=== PATIENT | male | born 1995 | race African-American/Black ===

== ENCOUNTER 2016-11-02 10:25 | Emergency (ER) | payer OTHER ==
[~2016-11-02] VITALS: Ht 170.2 cm; Wt 74.8 kg
[2016-11-02 10:30] VITALS: BP 144/91
--- NOTE | 2016-11-02 10:36 | ED GI/GU/ABDOMINAL COMPLAINT ---
History of Present Illness General Chief Complaint: Male Genitourinary Problems Stated Complaint: DISCHARGE FROM PENIS Source: patient Exam Limitations: no limitations Vital Signs & Intake/Output Vital Signs & Intake/Output Vital Signs Date Time Temp Pulse Resp B/P Pulse O2 O2 Flow FiO2 Ox Delivery Rate 11/02 1030 99.0 120 20 144/91 97 Room Air Allergies Coded Allergies: No Known Allergies (11/02/16) Reconcile Medications No Known Home Medications Triage Note: PT TO ED C/O ABD PAIN X 5 DAYS. C/O VOMITING AND DIARRHEA. ALSO STATES CLEAR DISCHARGE FROM HIS PENIS THE PAST 2 DAYS. STATES RECENT UNPROTECTED SEX. DENIES S/S. Triage Nurses Notes Reviewed? yes Timing: recent history Severity Numbers: 5 Location: urethral Activities at Onset: none Prior Abdominal Problems: none HPI: Patient is a 21-year-old male with an unremarkable past medical history who presents to emergency room with a five-day history of penile discharge and intermittent episodes of tactile fevers nausea 2 episodes of vomiting 2 days ago and a resolved 2 days ago complaint of abdominal discomfort. Patient also has loose watery stool production Patient denies any testicular pain penile skin lesions Patient is having unprotected sex with a female partner who has not discussed with him of any symptoms that she is having. Patient is able tolerate by mouth in the last 2 days Patient denies any dysuria hematuria or back pain (SNEHA MALONEY) Past History Travel History Traveled to [place] past 21 day No Medical History Any Pertinent Medical History? none Neurological: NONE EENT: NONE Cardiovascular: NONE Respiratory: NONE Gastrointestinal: NONE Hepatic: NONE Renal: NONE Musculoskeletal: NONE Psychiatric: NONE Endocrine: NONE Blood Disorders: NONE Cancer(s): NONE Tetanus Vaccine: Surgical History Surgical History: non-contributory, N Psychosocial History What is your primary language Thai Tobacco Use: Current Daily Use Daily Tobacco Use Amount/Type: => 5 Cigarettes daily ETOH Use: denies use Illicit Drug Use: denies illicit drug use Family History Hx Contributory? No (SNEHA MALONEY) Review of Systems Review of Systems Constitutional: Reports: no symptoms. EENTM: Reports: no symptoms. Respiratory: Reports: no symptoms. Cardiovascular: Reports: no symptoms. GI: Reports: see HPI. Genitourinary: Reports: see HPI, discharge. Musculoskeletal: Reports: no symptoms. Skin: Reports: no symptoms. Neurological/Psychological: Reports: no symptoms. Hematologic/Endocrine: Reports: no symptoms. Immunologic/Allergic: Reports: no symptoms. All Other Systems: Reviewed and Negative (SNEHA MALONEY) Physical Exam Physical Exam General Appearance: well developed/nourished, no apparent distress, alert Gastrointestinal: normal bowel sounds, soft, non-tender Male Genitals: normal genitalia Comments: Well-developed well-nourished person in no acute distress HEENT: Normal EENT exam, Neck: Supple, no lymphadenopathy, normal range of motion without pain or tenderness Back: Nontender, no CVA tenderness. Cardiovascular: Regular rate and rhythms no murmurs rubs or gallops, normal JVP Respiratory: Chest nontender. No respiratory distress.breath sounds clear to auscultation bilaterally Abdomen: Soft, nontender nondistended, no appreciable organomegaly. Normal bowel sounds. No ascites Extremity: No edema, no calf tenderness to palpation, normal and equal pulses. Neuro: Alert oriented x3, motor sensory normal, Skin: No appreciable rash on exposed skin, skin is warm and dry. Psych: Mood and affect is normal, memory and judgment is normal. Core Measures ACS in differential dx? No Severe Sepsis Present: No Septic Shock Present: No (SNEHA MALONEY) Progress Differential Diagnosis: appendicitis, biliary colic, bowel obstruction, cholecystitis, diverticulitis, epididymitis, esophageal varices, gastritis, hepatitis, hernia, hemorrhoids, ischemic bowel, inflamm bowel dis, Sravanthi-Geoff tear, orchitis, pancreatitis, prostatitis, peptic ulcer, PUD/GERD, perforated viscous, pyelonephritis, SBO, STD, testicular torsion, ureterolithiasis, urinary retention, urethritis, UTI/pyelo Plan of Care: Orders Procedure Date/time Status Add-on Test (ER Only) 11/02 1115 Active Add-on Test (ER Only) 11/02 1040 Active CULTURE,URINE 11/02 1038 Active CHLAMYDIA-GC DNA PROBE 11/02 1036 Active URINALYSIS 11/02 1036 Complete Laboratory Tests 11/02/16 1038: Urinalysis LIGHT H, Urine Color YEL, Urine Clarity HAZY H, Urine pH 6.0, Ur Specific [place] >= 1.030, Urine Protein 100 H, Urine Ketones NEG, Urine Nitrite NEG, Urine Bilirubin NEG@ICTO, Urine Urobilinogen 0.2, Ur Leukocyte Esterase NEG, Ur Microscopic SEDIMENT EXAMINED, Urine RBC 10-15 H, Urine WBC 5- 10 H, Ur Epithelial Cells RARE, Urine Mucus MANY H, Urine Hemoglobin SMALL H, Urine Glucose NEG Microbiology 11/02 1038 URINE ROUT: Urine Culture - RECD 11/02 1038 URINE ROUT: GC DNA Probe - RECD 11/02 1038 URINE ROUT: Chlamydia DNA Probe (ELGIN) - RECD Patient currently has unremarkable physical exam findings cremaster reflex was intact. No signs of skin lesions or herpes No penile discharge was appreciated patient has nontender abdomen and is able tolerate by mouth No testicular pain swelling Patient will be treated prophylactically for concerns of guttering Chlamydia was strongly advised to practice safe sex and let partner know of symptoms and if positive to be treated for similar symptoms On discharge patient looks well no apparent distress nontender abdomen no vomiting no nausea patient was afebrile. No CVA tenderness urinalysis was unremarkable for urine infection culture currently in pending (SNEHA MALONEY) Initial ED EKG: none (SNEHA MALONEY) Departure Departure Disposition: HOME OR SELF CARE Condition: Stable Clinical Impression Primary Impression: STD (male) Secondary Impressions: Abdominal pain Referrals: PATIENT HAS NO PRIMARY CARE DR (PCP/Family) Additional Instructions: As discussed you have been treated prophylactically with antibiotics for your symptoms in the emergency room. Please call the emergency room in one to 2 days to find out results of your cultures. Please do not participate in sexual activities until results are known and if positive please abstain from sex for approximately 10 days. Tomorrow please follow up and establish a primary care doctor with the referral numbers provided to the emergency room. Please let your partner know of your symptoms and if positive cultures are noted please inform her partner and have them be treated. If symptoms worsen return to emergency room. Please participate in safe sex techniques. Departure Forms: Customer Survey General Discharge Information Prescriptions: Current Visit Scripts No Known Home Medications (SNEHA MALONEY) PA/FOREIGN LAW CONSULTANT Co-Sign Statement Statement: ED Attending supervision documentation- [] I saw and evaluated the patient. I have also reviewed all the pertinent lab results and diagnostic results. I agree with the findings and the plan of care as documented in the PA's/FOREIGN LAW CONSULTANT's documentation. x I have reviewed the ED Record and agree with the PA's/FOREIGN LAW CONSULTANT's documentation. [] Additions or exceptions (if any) to the PAs/FOREIGN LAW CONSULTANT's note and plan are summarized below: [] (FAUSTINA CAMPBELL,RAJENDRA)
== END 2016-11-02 11:40 ==
LOC: ERH 10:25
DX: A64 Unspecified sexually transmitted disease (principal)
CPT/HCPCS: 81001; 81025; 87086; 87491; 87591; 96372

== ENCOUNTER 2017-01-05 02:58 | Emergency (ER) | payer OTHER ==
[~2017-01-05] VITALS: Ht 170.2 cm; Wt 74.8 kg
[2017-01-05 03:07] VITALS: BP 152/85
--- NOTE | 2017-01-05 03:09 | ED GI/GU/ABDOMINAL COMPLAINT ---
History of Present Illness General Chief Complaint: Abdominal Pain/Flank Pain Stated Complaint: ABD PAIN +N Source: patient Exam Limitations: no limitations Vital Signs & Intake/Output Vital Signs & Intake/Output Vital Signs Date Time Temp Pulse Resp B/P Pulse O2 O2 Flow FiO2 Ox Delivery Rate 01/05 0307 97.5 118 18 152/85 97 Room Air Allergies Coded Allergies: No Known Allergies (11/02/16) Reconcile Medications Omeprazole Magnesium (Prilosec Otc) 20 MG TABLET.DR 1 TAB PO DAILY STOMACH UPSET/BURNING Ondansetron (Zofran Odt) 4 MG TAB.RAPDIS 1 TAB SL TID PRN NAUSEA Triage Nurses Notes Reviewed? yes Onset: Gradual Duration: hour(s): Timing: recent history Quality/Severity: burning, cramping Location: epigastric Radiation: no radiation Activities at Onset: none Modifying Factors: Worsens With: palpation. Associated Symptoms: abdominal pain, nausea/vomiting HPI: 21 yo gentleman ate at [employer] and then developed nausea, vomiting, diarrhea for the past several hours. He notes mild mid epigastric burning type discomfort, no fever, chills, dyspnea, rash. He is otherwise well. Past History Medical History Any Pertinent Medical History? see below for history Neurological: NONE EENT: NONE Cardiovascular: NONE Respiratory: NONE Gastrointestinal: NONE Hepatic: NONE Renal: NONE Musculoskeletal: NONE Psychiatric: NONE Endocrine: NONE Blood Disorders: NONE Cancer(s): NONE Tetanus Vaccine: Surgical History Surgical History: non-contributory, N Psychosocial History What is your primary language Malawian Family History Hx Contributory? No Review of Systems Review of Systems Constitutional: Reports: no symptoms. EENTM: Reports: no symptoms. Respiratory: Reports: no symptoms. Cardiovascular: Reports: no symptoms. GI: Reports: no symptoms. Genitourinary: Reports: no symptoms. Musculoskeletal: Reports: no symptoms. Skin: Reports: no symptoms. Neurological/Psychological: Reports: no symptoms. Hematologic/Endocrine: Reports: no symptoms. Immunologic/Allergic: Reports: no symptoms. All Other Systems: Reviewed and Negative Physical Exam Physical Exam General Appearance: well developed/nourished, mild distress Head: atraumatic, normal appearance Eyes: Bilateral: normal appearance. Ears, Nose, Throat, Mouth: hearing grossly normal Neck: normal inspection, supple, full range of motion Respiratory: normal breath sounds, chest non-tender, no respiratory distress, quiet respiration, lungs clear Cardiovascular: regular rate/rhythm Gastrointestinal: normal bowel sounds, soft, mild mid epigastric tenderness to palpation. Back: normal inspection, normal range of motion Extremities: normal range of motion, evidence of injury Neurologic/Psych: no motor/sensory deficits, awake, alert, oriented x 3 Skin: intact, normal color, warm/dry Core Measures ACS in differential dx? No Severe Sepsis Present: No Septic Shock Present: No Progress Differential Diagnosis: food poisoning, gastroenteritis vs other. Plan of Care: Current Medications Sig/Felice Start time Last Medication Dose Stop Time Status Admin Ondansetron HCl 4 MG ONCE ONE 01/06 400 CAN (Zofran) 01/05 401 Pantoprazole Sodium 40 MG ONCE ONE 01/06 400 CAN (Protonix) 01/05 401 Sodium Chloride 1,000 ML BOLUS ONE 01/06 400 CAN (Normal Saline 0.9%) 01/05 0459 Laboratory Tests 01/05/17 0351: Total Bilirubin Cancelled, Direct Bilirubin Cancelled, AST Cancelled, ALT Cancelled, Alkaline Phosphatase Cancelled, Total Protein Cancelled, Albumin Cancelled, CBC w Diff Cancelled, WBC Cancelled, RBC Cancelled, Hgb Cancelled, Hct Cancelled, MCV Cancelled, MCH Cancelled, RDW Cancelled, Plt Count Cancelled, MPV Cancelled, PUBS MCHC Cancelled Initial ED EKG: none Departure Departure Disposition: HOME OR SELF CARE Condition: Stable Clinical Impression Primary Impression: Abdominal pain Referrals: PATIENT HAS NO PRIMARY CARE DR (PCP/Family) Departure Forms: Customer Survey General Discharge Information Prescriptions: Current Visit Scripts Ondansetron (Zofran Odt) 1 TAB SL TID PRN NAUSEA #10 TAB Omeprazole Magnesium (Prilosec Otc) 1 TAB PO DAILY #30 TAB Comments 01/05/17, 4:27am.... pt feeling better... declines blood work and iv's... encouraged close follow up.
[2017-01-05] MEDS ORDERED: PRILOSEC OTC20 M1 PO (04:24)
[2017-01-05] MEDS ORDERED: ZOFRAN ODT4 M1 SL (04:24)
== END 2017-01-05 04:43 ==
LOC: ERH 02:58
DX: R10.13 Epigastric pain (principal)

== ENCOUNTER 2017-02-15 06:37 | Emergency (ER) | payer OTHER ==
[~2017-02-15] VITALS: Ht 170.2 cm; Wt 74.8 kg
[~2017-02-15 06:37] MED LIST: PRILOSEC OTC20 M1 PO; ZOFRAN ODT4 M1 SL
[2017-02-15 06:45] VITALS: BP 118/86
--- NOTE | 2017-02-15 06:53 | ED DYSPNEA/ASTHMA COMPLAINT ---
History of Present Illness General Chief Complaint: Wheezing/Asthma Stated Complaint: SOB Source: patient Exam Limitations: no limitations Vital Signs & Intake/Output Vital Signs & Intake/Output Vital Signs Date Time Temp Pulse Resp B/P B/P Pulse O2 O2 Flow FiO2 Mean Ox Delivery Rate 02/15 0710 95 02/15 0655 97 Room Air 02/15 0645 98.6 82 18 118/86 93 Room Air Room Air Allergies Coded Allergies: No Known Allergies (11/02/16) Triage Note: TRIAGE: 22 Y/O MALE PRESENTS C/O SOB, ONSET X30 MINUTES. REPORTS HISTORY OF ASTHMA. ROOM AIR SPO2 93-94%. REPORTS "I DON'T HAVE MY INHALER." Triage Nurses Notes Reviewed? yes Onset: Abrupt Duration: hour(s): (1) Timing: single episode today Severity: mild, moderate Associated Symptoms: cough HPI: 22-year-old male with history of asthma presents to the ER for chief complaint of shortness of breath since waking up this morning around 5:00. He states usually he feels short of breath in the morning but it goes away. He has no inhalers or breathing treatments at home. Last history of hospitalization for asthma was in elementary school. He is a cigarette smoker. Denies any fever chills or productive cough. (STEPH CAMPBELL,ROGELIO) Reconcile Medications Albuterol Sulfate (Proair Hfa) 90 MCG HFA.AER.AD 2-4 PUF INH Q4-6 PRN PRN shortness of breath Omeprazole Magnesium (Prilosec Otc) 20 MG TABLET.DR 1 TAB PO DAILY STOMACH UPSET/BURNING Ondansetron (Zofran Odt) 4 MG TAB.RAPDIS 1 TAB SL TID PRN NAUSEA Prednisone 20 MG TABLET 1 TAB PO BID asthma (RAJENDRA WEEMS MD) Past History Travel History Traveled to [place] past 21 day No Medical History Any Pertinent Medical History? 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 No (ROGELIO CHOI MD) Review of Systems Review of Systems Constitutional: Denies: chills, diaphoresis. EENTM: Reports: no symptoms. Respiratory: Reports: cough, short of breath. Denies: sputum production. Cardiovascular: Denies: chest pain, orthopena, palpitations. GI: Denies: abdominal pain. Genitourinary: Reports: no symptoms. Musculoskeletal: Reports: no symptoms. Skin: Reports: no symptoms. Neurological/Psychological: Reports: no symptoms. Hematologic/Endocrine: Denies: bruising, bleeding. Immunologic/Allergic: Reports: no symptoms. All Other Systems: Reviewed and Negative (ROGELIO CHOI MD) Physical Exam Physical Exam General Appearance: well developed/nourished, alert, awake, anxious Head: atraumatic, normal appearance Eyes: Bilateral: other (INJECTED). Ears, Nose, Throat: normal pharynx, normal ENT inspection, hearing grossly normal Neck: normal inspection, supple, full range of motion Respiratory: decreased breath sounds, wheezing Cardiovascular: regular rate/rhythm Peripheral Pulses: 2+ radial (R), 2+ radial (L) Gastrointestinal: normal bowel sounds, soft, non-tender Neurologic/Psych: no motor/sensory deficits, awake, alert, oriented x 3 Skin: intact, normal color, warm/dry Core Measures ACS in differential dx? No Severe Sepsis Present: No Septic Shock Present: No (ROGELIO CHOI MD) Progress Differential Diagnosis: asthma, bronchitis Plan of Care: Orders Procedure Date/time Status RT ED ORDERS 02/15 653 Complete Initial ED EKG: normal intervals Hand-Off Endorsed To: RAJENDRA WEEMS MD Endorsed Time: 705 (ROGELIO CHOI MD) Departure Departure Condition: Stable Clinical Impression Primary Impression: Asthma exacerbation Referrals: PATIENT HAS NO PRIMARY CARE DR (PCP/Family) Departure Forms: Customer Survey General Discharge Information (ROGELIO CHOI MD) Departure Time of Disposition: 740 Disposition: HOME OR SELF CARE Prescriptions: Current Visit Scripts Albuterol Sulfate (Proair Hfa) 2-4 PUF INH Q4-6 PRN PRN shortness of breath #1 INHAL Prednisone 1 TAB PO BID #10 TAB (RAJENDRA WEEMS MD) Critical Care Note Critical Care Note Critical Care Time: non-applicable (ROGELIO CHOI MD)
[2017-02-15] MEDS ORDERED: PROAIR HFA8.5 GM INH (07:43)
[2017-02-15] MEDS ORDERED: PREDNISONE20 M1 PO (07:43)
== END 2017-02-15 08:06 ==
LOC: ERH 06:37
DX: J45.901 Unspecified asthma with (acute) exacerbation (principal); F17.210 Nicotine dependence, cigarettes, uncomplicated
CPT/HCPCS: 1263

== ENCOUNTER 2017-02-24 05:44 | Emergency (ER) | payer OTHER ==
[~2017-02-24] VITALS: Ht 170.2 cm; Wt 74.8 kg
[~2017-02-24 05:44] MED LIST changes: +PREDNISONE20 M1 PO; +PROAIR HFA8.5 GM INH
[2017-02-24 05:54] VITALS: BP 143/89
--- NOTE | 2017-02-24 06:03 | ED DYSPNEA/ASTHMA COMPLAINT ---
History of Present Illness General Chief Complaint: Wheezing/Asthma Stated Complaint: DIFF BREATHING HX ASTHMA O2 SAT 98% Source: patient Exam Limitations: no limitations Vital Signs & Intake/Output Vital Signs & Intake/Output Vital Signs Date Time Temp Pulse Resp B/P B/P Pulse O2 O2 Flow FiO2 Mean Ox Delivery Rate 02/24 0554 97.8 82 24 143/89 97 Room Air Allergies Coded Allergies: No Known Allergies (11/02/16) Reconcile Medications Albuterol Sulfate (Proair Hfa) 90 MCG HFA.AER.AD 2-4 PUF INH Q4-6 PRN PRN shortness of breath Omeprazole Magnesium (Prilosec Otc) 20 MG TABLET.DR 1 TAB PO DAILY STOMACH UPSET/BURNING Ondansetron (Zofran Odt) 4 MG TAB.RAPDIS 1 TAB SL TID PRN NAUSEA Prednisone 50 MG TABLET 1 TAB PO DAILY wheezing Prednisone 20 MG TABLET 1 TAB PO BID asthma Triage Note: C/O DIFFICULTY BREATHING HX ASTHMA, RANOUT OF INHALER Triage Nurses Notes Reviewed? yes Onset: Gradual Duration: day(s):, waxing and waning Timing: recent history Severity: mild Activities at Onset: none Prior Episodes/Possible Cause: frequent episodes Modifying Factors: Improves With: rest. Associated Symptoms: cough, wheezing HPI: 22-year-old gentleman presents with cough and wheezing for one and half days. He states it started last night but then got worse during the morning. He states that he ran out of his inhalers. He notes he has wheezing and a dry cough without fever or shortness of breath. He is otherwise well and has no other concerns. Past History Travel History Traveled to [place] past 21 day No Medical History Any Pertinent Medical History? 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 No Review of Systems Review of Systems Constitutional: Reports: no symptoms. EENTM: Reports: no symptoms. Respiratory: Reports: no symptoms. Cardiovascular: Reports: no symptoms. GI: Reports: no symptoms. Genitourinary: Reports: no symptoms. Musculoskeletal: Reports: no symptoms. Skin: Reports: no symptoms. Neurological/Psychological: Reports: no symptoms. Hematologic/Endocrine: Reports: no symptoms. Immunologic/Allergic: Reports: no symptoms. All Other Systems: Reviewed and Negative Physical Exam Physical Exam General Appearance: well developed/nourished, no apparent distress Head: atraumatic, normal appearance Eyes: Bilateral: normal appearance. Ears, Nose, Throat: normal pharynx, normal ENT inspection Neck: normal inspection, supple, full range of motion Respiratory: minimal end expiratory wheeze Cardiovascular: regular rate/rhythm Gastrointestinal: normal bowel sounds, soft, non-tender Extremities: normal inspection Neurologic/Psych: no motor/sensory deficits, awake, alert, oriented x 3 Skin: intact, normal color, warm/dry Core Measures ACS in differential dx? No Severe Sepsis Present: No Septic Shock Present: No Progress Differential Diagnosis: asthma, bronchitis Plan of Care: Current Medications Sig/Felice Start time Last Medication Dose Stop Time Status Admin Prednisone 60 MG ONCE ONE 02/24 615 UNVr 02/24 06 Initial ED EKG: none Departure Departure Disposition: HOME OR SELF CARE Condition: Stable Clinical Impression Primary Impression: Asthma exacerbation Referrals: PATIENT HAS NO PRIMARY CARE DR (PCP/Family) Departure Forms: Customer Survey General Discharge Information Prescriptions: Current Visit Scripts Albuterol Sulfate (Proair Hfa) 2-4 PUF INH Q4-6 PRN PRN shortness of breath #1 INHAL Prednisone 1 TAB PO DAILY #4 TAB Comments pt well appearing in ED, 02 sat normal.... pt given prednisone 60mg and refilled his inhaler, and referred to pmd Critical Care Note Critical Care Note Critical Care Time: non-applicable
[2017-02-24] MEDS ORDERED: PREDNISONE50 M1 PO (06:10)
[2017-02-24] MEDS ORDERED: PROAIR HFA8.5 GM INH (06:10)
== END 2017-02-24 06:27 ==
LOC: ERH 05:44
DX: J45.901 Unspecified asthma with (acute) exacerbation (principal); F17.210 Nicotine dependence, cigarettes, uncomplicated